=== PATIENT | female | born 1945 | race Hispanic/Latino ===

== ENCOUNTER 2017-03-07 10:08 | Observation (INO) | payer MEDICARE, MEDICAID ==
[~2017-03-07] VITALS: Ht 160 cm; Wt 99.0 kg
[2017-03-07 10:17] VITALS: BP 186/111; PULSE 86; RESP 16; O2SAT 96
--- NOTE | 2017-03-07 10:22 | ED.REPORT ---
HPI-Neurologic Deficit Date of Service Mar 07, 2017 ED Provider: Dr. Kevin White The patient is a 71 year old female who presents to the ED from due to confusion and altered mental status onset 0800 this morning. Per the pt's daughter, this morning she was not responding to questions appropriately at home , repeating the same phrases, and complained of nausea. Reports confusion. Her daughter denies difficulty walking, facial droop, one sided weakness, and slurred words. Pt was normal yesterday evening. She is on blood pressure medication. Blood sugar is 105. Nursing Notes Stated Complaint: CONFUSION AND VOMITING Chief Complaint: Neuro Symptoms/ Deficits Nursing Notes Reviewed: Yes Allergies: Coded Allergies: No Known Allergies (Unverified , 03/07/17) General Time Seen by Provider: 10:12 Chief Complaint Other (confusion) Hx Obtained From: Patient Arrived By: Walk-in Sudden in Onset?: Yes Onset Occurred: 1 - 4 hours ago Symptom Duration: Since onset Associated with: Reports: Nausea Recent Healthcare: Recent doctor visit Similar Sx Previous: Yes Risk Factors NIH Stroke Scale Level of Consciousness: Alert and responsive (0) Ask Month & Age: 0 questions right (2) Open/Close Eyes/Hand Preschool Principal: Performs both tasks (0) Horizontal EO Movements: None (0) Visual Vazquez: No visual loss (0) Facial Palsy: Normal symmetry (0) Right Arm Motor Drift (10s): No drift 10 sec (0) Left Arm Motor Drift (10s): No drift 10 sec (0) Right Leg Motor Drift (5s): No drift 5 sec (0) Left Leg Motor Drift (5s): No drift 5 sec (0) Limb Ataxia FNF/Heel-Holliday: No ataxia (0) Sensation (Arms/Legs/Face): Pinprick less sharp (1) Language Aphasia: No aphasia, normal (0) Dysarthria: No dysarthria, normal (0) Extinction/Inattention: No exctinct/inattent (0) NIHSS Score: 3 Time NIHSS Performed: 10:32 Date NIHSS Performed: Mar 07, 2017 Past Medical History Past Medical History HTN Smoking History Unknown if Ever Smoker Social History Other Social History: Good social support, Local resident Ambulatory Status Independent Review of Systems GI: Reports: Nausea, Denies: Vomiting Neurologic: Reports: Confusion, Headache, Denies: Dizziness, Focal weakness, Numbness, Problem walking, Slurred speech , Syncope, Vision change, Weakness Complete sys rev & neg: except as marked. Physical Exam Initial Vital Signs Vital Signs (First) Date Time Temp Pulse Resp B/P Pulse Ox O2 Delivery O2 Flow Rate FiO2 03/07/17 10:17 36.8 86 16 186/111 96 Room Air Initial VS: Reviewed General/Constitutional: Awake, Alert, Cooperative Head / Eyes: Atraumatic, Normocephalic Respiratory / Chest: Atraumatic, Breath sounds NL, Breath sounds = bilat Cardiovascular: Heart rate NL, Regular rhythm, Heart sounds NL Neurologic: No motor deficits Mental Status: Positive: Confused Abdomen: Atraumatic, Soft, Non-tender Upper Extremity / MS: Atraumatic, Inspection NL, Full range of motion, No deformity Lower Extremity / Pelvis / MS: Atraumatic, Inspection NL, Full range of motion , No deformity Skin: Atraumatic, Color NL, No rash Wrist / Hand: Atraumatic, Inspection NL, Full range of motion, No deformity Ankle / Foot: Atraumatic, Inspection NL, Full range of motion, No deformity Interpretation & Diagnostics Lab Results Interpretation Result Diagram: 03/07/17 1040 03/07/17 1040 Test 03/07/17 10:40 03/07/17 12:07 White Blood Count 8.4th/mm3 (3.8-10.1) Red Blood Count 4.73mil/mm3 (3.90-5.20) Hemoglobin 14.8g/dL (12.0-15.6) Hematocrit 44.5% (35.0-46.0) Mean Corpuscular Volume 94.1fL (81-100) Mean Corpuscular Hemoglobin 31.3pg (27.0-35.0) Mean Corpuscular Hemoglobin Concent 33.3% (32.0-37.0) Red Cell Distribution Width 11.9% (12.3-15.4) Platelet Count 224bil/L (150-400) Neutrophils (%) (Auto) 70.7% (40-74) Lymphocytes (%) (Auto) 23.1% (14-46) Monocytes (%) (Auto) 5.3% (4-12) Eosinophils (%) (Auto) 0.4% (0-5) Basophils (%) (Auto) 0.1% (0-3) Prothrombin Time 10.0sec (8.1-12.5) Prothromb Time International Ratio 0.94ratio Activated Partial Thromboplast Time 28.8sec (22.8-33.0) Hold Urine Received (Received) Sodium Level 141mEq/L (134-144) Potassium Level 3.6mEq/L (3.5-5.2) Chloride Level 103mEq/L (97-108) Carbon Dioxide Level 21mmol/L (18-29) Blood Urea Nitrogen 14mg/dL (8-27) Creatinine 0.55mg/dL (0.57-1.00) Estimat Glomerular Filtration Rate 157mL/min (>59) Glucose Level 114mg/dL (60-99) Calcium Level 9.4mg/dL (8.5-10.1) Total Bilirubin 0.4mg/dL (0.0-1.2) Aspartate Amino Transf (AST/SGOT) 13U/L (0-50) Alanine Aminotransferase (ALT/SGPT) 14U/L (0-32) Alkaline Phosphatase 114U/L (25-165) Troponin T 0.010ug/L (0.0-0.011) Total Protein 8.3g/dL (6.4-8.4) Albumin 4.3g/dL (3.4-5.0) Urine Color Straw (YELLOW) Urine Appearance Clear (CLEAR,HAZY) Urine pH 7.0 (5.0-8.0) Urine Specific [place] 1.010 (1.003-1.035) Urine Protein Negativemg/dL (NEG,TRACE) Urine Glucose (UA) Negativemg/dL (NEGATIVE) Urine Ketones Negativemg/dL (NEGATIVE) Urine Occult Blood Trace (NEGATIVE) Urine Nitrite Negative (NEGATIVE) Urine Bilirubin Negative (NEGATIVE) Urine Urobilinogen Normalmg/dL (NORMAL) Urine Leukocyte Esterase Negative (NEGATIVE) Urine RBC 0-2/hpf (0-2) Urine WBC 0-5/hpf (0-5) Urine Epithelial Cells Occasional/hpf (NONE-MOD) Urine Crystals None seen (NONE SEEN) Urine Bacteria None/hpf (NONE-FEW) Urine Hyaline Casts None/lpf (NONE) Urine Granular Casts None seen (NONE SEEN) Urine Waxy Casts None seen (NONE SEEN) Urine Red Blood Cell Casts None seen (NONE SEEN) Urine White Blood Cell Casts None seen (NONE SEEN) Urine Mucus None seen (None Seen) Urine Trichomonas Present (NONE SEEN) Urine Yeast None (NONE SEEN) Urinalysis Comment None Urine Culture Reflexed Not indicated ECG Interpretation ECG Interpretation: no acute ST changes Time: 22:46 Interpreted by: ED physician Normal ECG Interpretation: Normal sinus rhythm (rate 75) CT Head Interpretation IMPRESSION: 1. No acute intracranial abnormalities. Dictated by: Lawrence Junior M.D. on 03/07/2017 at 11:21 Approved by: Lawrence Junior M.D. on 03/07/2017 at 11:22 Study: Head CT no contrast Interpretation / Wet Read by: Interpret - Radiologist Re-Eval/Medical Decision Med Decision/Clinical Course Concern for CVA versus TIA versus other cause of altered mental status. TPA was not given due to onset greater than 3 hours as well as low NIH stroke scale. Re-Evaluation/Progress #1: Time of Eval: 10:35 Re-Evaluation/Progress Note: Plan for CT head. NIH stroke scale performed. Re-Evaluation/Progress #2: Time of Eval: 11:32 Re-Evaluation/Progress Note: Pt rechecked. She is still slightly confused. There is no evidence of a large stroke on her catscan. Plan for aspirin and to admit pt for observation. Pt and family understand and agree with plan. All questions addressed. Consultation : Referral / Consult Name: Carlos Decker DO Consulted With: Hospitalist Call Returned at: 13:08 Twister Frame Tender: Agrees with eval, Agrees with plan, Accepts admit Note: Case discussed. Dr. Decker accepts admit. Counseled Regarding: Diagnosis, Lab results, Need for admission Discharge & Departure Impression: Primary Impression: Confusion Additional Impression: CVA (cerebral vascular accident) CVA mechanism: unspecified Qualified Code: I63.9 - Cerebral infarction, unspecified Disposition: ADMITTED TO HOSPITAL Discharge Condition All VS Reviewed: Yes Condition: Stable Referrals: Glendy Cintron MD (PCP) Scribe Attestation Portion of this note were transcribed by Cheyenne Nunez. I, Dr. White, personally performed the history, physical exam, and medical decision-making: I reviewed and confirmed the accuracy for the information in the transcribed note. Signed by: tabitha Elaine, 03/07/17 1300 copies to: Glendy Cintron MD, Timothy S DO Mar 07, 2017 10:22 Cheyenne Nunez Mar 07, 2017 10:29
[2017-03-07] MEDS ORDERED: 0.9% Sodium Chloride 1,000 ML IV ONE (10:36)
[2017-03-07] MEDS ORDERED: Ondansetron 2 mg/mL 2 mL Inj IVPUSH PRN ×3 (10:40→16:35)
[2017-03-07 10:45] VITALS: BP 175/83; PULSE 76; RESP 18; O2SAT 94
[2017-03-07 10:55] LABS: BASOPHILS % (AUTO) 0.1 % (0-3); EOSINOPHILS % (AUTO) 0.4 % (0-5); MONOCYTES % (AUTO) 5.3 % (4-12); Mean Corpuscular Hemoglobin 31.3 pg (27.0-35.0); Mean Corpuscular Volume 94.1 fL (81-100); NEUTROPHILS % (AUTO) 70.7 % (40-74); Platelet Count 224 bil/L (150-400)
[2017-03-07 11:11] LABS: INR 0.94 ratio
[2017-03-07 11:17] LABS: TROPONIN T 0.01 ug/L (0.0-0.011)
--- NOTE | 2017-03-07 11:24 | DRSVH ---
PROCEDURE: CT BRAIN WITHOUT CONTRAST ([id number]) INDICATIONS: Stroke TECHNIQUE: Noncontrast 4.5 mm thick angled axial sections acquired from the foramen magnum to the vertex, with c oronal reformats. COMPARISON: None. FINDINGS: Image quality: Excellent. CSF spaces: Basal cisterns are patent. No extra-axial fluid collections. The ventricles are symmet thomas in size and shape. Brain: No intracranial bleeds or masses. There is mild cerebral volume loss for age, with resultant ventricular and sulcal prominence. There are mild periventricular and deep white matter chronic sma ll vessel ischemic changes. There is intracranial internal carotid artery atherosclerosis. Skull and face: Calvarium and visualized facial bones appear intact, without suspicious lesions. Sinuses: Visualized sinuses and mastoids are clear. IMPRESSION: 1. No acute intracranial abnormalities. Dictated by: Lawrence Junior M.D. on 03/07/2017 at 11:21 Approved by: Lawrence Junior M.D. on 03/07/2017 at 11:22
[2017-03-07 12:30] VITALS: BP 166/76; PULSE 71; RESP 14; O2SAT 95
[2017-03-07 12:42] LABS: APPEARANCE,URINE CLEAR (CLEAR,HAZY); COLOR,URINE STRAW (YELLOW); OCCULT BLOOD,URINE TRACE (NEGATIVE); UROBILINOGEN,URINE NORMAL (NORMAL)
[2017-03-07] MEDS ORDERED: Alum-Mag Hydrox-Simeth 30 mL Suspension PO PRN ×2 (13:10→16:35)
[2017-03-07 13:45] VITALS: BP 173/100; PULSE 82; RESP 16; O2SAT 96
--- NOTE | 2017-03-07 13:50 | PCM.HPMED ---
Subjective Date of Service Mar 07, 2017 Primary Provider: Admitting Physician: Carlos Decker DO Primary Care Physician: Glendy Cintron MD Attending Physician: Carlos Decker DO Chief Complaint: Confusion noted by family History of Present Illness: Patient is a 71-year-old female with past medical history significant for at least hypertension and hypothyroidism, recently moved from [place], presenting today to emergency department due to concern from family members when earlier this morning she demonstrated an increased level of confusion, and was not acting herself. It was her 2 daughters who brought her to the emergency department, they noted the patient was asking the same question multiple times, acting much more confused than her baseline, additionally complaining of nausea which prompted concern. I did not any more classic symptoms of stroke, stated they never observed any facial asymmetry, patient never had difficulty walking or ambulating, and also never demonstrated slurred speech. During emergency room evaluation however she was noted to have sensory deficits on the upper extremity which prompted additional concern for stroke. My evaluation confirmed history mentioned above, for which I needs to use an online delivery helper service due to patient being [place]-speaking. Only other pertinent history would be that of left ankle pain which has been causing her discomfort for past many months. She has already seen orthopedic surgeon, conservative treatment such as home exercises have not yet been effective. She mentions a possible remote history of diabetes diagnosed back when she was in [place] which she is not certain of this. She had her cholesterol levels measured in her primary care doctor's office earlier this week but is not sure of results. Real-time evaluation she is complaining of no symptoms. She does not recall the events of earlier this morning, and was surprised when she awoke in the emergency department. Additionally denies any chest pains or shortness of breath currently or in the recent past. Has any blurred vision headache or dizziness. Review of Systems: A 10 point review of systems is conducted and entirely negative excepting pertinent positives and negatives included above in history of present illness Allergies Coded Allergies: No Known Allergies (Unverified , 03/07/17) Home Medications Atenolol Amlodipine Levothyroxine Losartan Dosing as per medical reconciliation. PMH HTN Hypothyroidism Surgical History No surgical history noted Family History Patient denies any significant family history. She was asked specifically of history of stroke or cardiovascular disease in parents or siblings both of which she denies. Social History Hx Alcohol Use: No Hx Substance Use: No Hx Tobacco Use: No Exam Vital Signs Vital Sign - Last Date Time Temp Pulse Resp B/P Pulse Ox O2 Delivery O2 Flow Rate FiO2 03/07/17 13:45 37.1 82 16 173/100 96 Room Air General: Alert, Oriented X3, Cooperative, No Acute Distress Eyes: PERRLA, EOMI Mouth: Mucous Membr Moist/[place] Chest & Lungs: Clear to auscultation & percussion Cardiovascular: Regular Rate/Rhythm Abdomen: Non-tender, Non-distended Extremities: No cyanosis/clubbing/edma bilat Neurological: Grossly Neurologically Intact, Cranial Nerves 2-12 Intact, Normal Speech, Strength Normal 4/4 ext, Sensation Intact, Cerebellar Function nl Heel-Holliday Lab and Diagnostics Result Diagram: 03/07/17 1040 03/07/17 1040 Assessment & Plan 71-year-old female presented to the emergency department with altered mentation and confusion, additionally noted to have transient sensory deficits, placed on OBSERVATION due to concern for TIA or stroke: #. TIA/stroke observation #Acute mental status change/confusion. - Patient will be placed on continuous telemetry monitoring - Continue neurovascular checks as per protocol - MRA per stroke protocol as currently ordered and pending, additional obtain carotid ultrasounds and echocardiogram - Additional studies to be ordered will be patient's cholesterol, and hemoglobin A1c to screen for diabetes - Permissive hypertension first 24 hours, plan to attempt more tight control thereafter - PT, OT< Speech consulted - Continue ASA 325mg and Atorvastatin at this time. #Hypertension - Certainly a risk factor for stroke - We will restart home medications, as noted above will allow permissive hypertension at this time - NH medications prescribed for excessive elevation of blood pressures over 180 #Hypothyroidism - Continue levothyroxine - Will obtain TSH level #Ankle pain - Physical therapy consulted for above TIA stroke, will consider ankle pain as well. Pain Evaluation: Adequate Pain Control Resuscitation Status: CPR: Attempt Resuscitation Time spent 55 minutes Carlos Decker DO Mar 07, 2017 13:50
--- NOTE | 2017-03-07 13:58 | NUR ---
Admit: Patient arrived to [facility] @ approx 1345 via stretcher. Ambulated from stretcher to bed. Stand up weight obtained. Family at bedside. Denies pain, SOB, dizzy, lightheadedness and nausea. Alert & oriented. Oriented to room and call light system. Bed in low and locked position, bed rails up x 2, non-skid socks on for safety, call-light within reach. Stroke booklet provided. Telemetry #44 on, SR 90s per telephone directory deliverer.
[2017-03-07 14:08] VITALS: PULSE 96
[2017-03-07] MEDS ORDERED: LOSA50TA3 PO (14:30)
[2017-03-07] MEDS ORDERED: AMLO5TAB2 PO (14:30)
[2017-03-07] MEDS ORDERED: ATEN100T PO (14:30)
[2017-03-07] MEDS ORDERED: LEVO137T2 PO (14:36)
[2017-03-07] MEDS ORDERED: Polyethylene Glycol (PEG) 17 Gm Powder PO PRN (16:35)
[2017-03-07] MEDS ORDERED: Labetalol 5 mg/mL 4 mL Inj IVPUSH PRN (16:35)
--- NOTE | 2017-03-07 17:27 | NUR ---
MAYA explained to pt's daughter who interpreted for pt. All questions answered. MAYA signed, copy given.
[2017-03-07 20:06] VITALS: BP 149/81; PULSE 58; RESP 16; O2SAT 97
[2017-03-08] VITALS (8 sets, daily range): BP systolic 118–155; BP diastolic 70–83; PULSE 48–62; RESP 16–18; O2SAT 83–98
--- NOTE | 2017-03-08 04:54 | NUR ---
Neuro VS Pt has been alert and oriented x 4. No facial droop or slurring of speech noted, PERRLA. Bilateral equal color card maker. Pt is a Lao speaking, family has been helping with translations. Denies chest pain, sob, n/v or abd discomfort. Explained the CVA workup plan to pt's family and relatives. Pt verbalizes understanding. Will continue to monitor.
--- NOTE | 2017-03-08 10:21 | NUR ---
Evaluation completed/up ad mabel Please go to "Notes" then click on "Assessments and Notes" (bottom left corner of screen). Then select appropriate discipline tab on top of screen. no further PT indicated; OK to be up ad mabel
[2017-03-08] MEDS ORDERED: LORazepam 1 mg Tablet PO ONE (12:50)
--- NOTE | 2017-03-08 13:25 | NUR ---
MRI Concerns: Patient family states she get "really nervous" when she had her last MRI. MD notified and received order for Ativan one time for procedure. Ativan administered. Side effects explained. Asked patient to call for assistance to BR, call light within reach, family at bedside. Agreed.
--- NOTE | 2017-03-08 13:43 | NUR ---
Social Work: Initial Assessment / Multidisciplinary Rounds / Readiness for d/c Data: Pt is a 71 y/o female admitted for confusion, R/O CVA. Pt's PCP is Dr Cintron, pt's insurance is Medicare with [facility] supp. EMR reviewed. Pt discussed in rounds, MD states pt likely ready for d/c either today or tomorrow. MD PSYCHIATRY met with pt at bedside with family, role explained. Pt declined deaf interpreter, prefers grandson to interpret. Pt states she lives in [place] with her daughter in a single story home where she does not use DME, does not drive, has no hx of HH or SNF, no LTC or VA benefits, and is not a caregiver. Pt plans to d/c home via POV with a family member when medically stable. Assessment: Pt who is independent at baseline, currently capable of self care. Plan: Pt will d/c home via POV when medically stable, likely today or tomorrow per MD. No d/c planning needs identified at this time. MD PSYCHIATRY will continue to follow if needs arise. SHAHRIAR Soares Addendum: 03/08/17 at 1346 by OTILIA LLANES Amended: Links added.
--- NOTE | 2017-03-08 14:17 | NUR ---
Off Unit: Patent transported to MRI via bed accompanied by MRI staff. inspector technician notified. Ativan PO administered prior to transport for anxiety relief.
--- NOTE | 2017-03-08 17:50 | DRSVH ---
PROCEDURE: MRI STROKE PROTOCOL ([id number]) Pre- and post-contrast brain MRI, non-contrast brain MR angiogram, pre- and postcontrast neck MR albert ogram INDICATIONS: R/O CVA TECHNIQUE: Brain: Noncontrast axial T1 spin echo, axial T2 fast spin echo, sagittal and axial FLAIR, coronal T2 fast spin echo, axial gradient echo, axial diffusion and ADC through the brain. After the administr ation of contrast, axial 3D VIBE of the cranial vasculature and brain. Brain MRA: Non-contrast 3-D time of flight MR angiogram, with multiple korfzif-abkrtkclw-zwqzkabwks (MIP) reformats performed. Neck MRA: Axial and sagittal TruFISP through the neck. Coronal dynamic MR angiogram during administ ration of contrast in the arterial and venous phases, with 3-dimenstional orqgkdf-ijyvntsjc-bqmpvpabe n (MIP) reformats constructed from subtraction images. COMPARISON: [facility], CT, CT BRAIN WO CON, 03/07/2017, 11:01. FINDINGS: Image quality: Diagnostic. No motion artifact on of the [place] of [place] exam is noted. BRAIN: CSF spaces: Ventricles are normal in size and shape. Basal cisterns are patent. No extra-axial flu id collections. Brain: No intracranial bleeds or mass effects. Hyde-white matter interface is normal. Diffusion we ighted images show no acute ischemic insults. Small foci of increased flair signal is identified sca ttered throughout the deep white matter of the supratentorial brain, best appreciated on the sagittal flair images compared to the axial FLAIR images. Brainstem appears normal. Normal intravascular henry w voids are present. No abnormal intracranial enhancement. Skull and face: Calvarial marrow signal is normal. Orbits appear normal. Sinuses: Sinuses and mastoids are clear. BRAIN MR ANGIOGRAM: Anterior circulation: Intracranial internal carotid arteries are normal in size and enhancement. Th e flow within the paired anterior cerebral arteries is normal and symmetric. The flow within the mid dle cerebral arteries is normal and symmetric. And anterior to indicating artery is not definitely s een, which may be obscure by motion. No stenoses, occlusions, or aneurysms. Posterior circulation: The visualized portions of the vertebral arteries demonstrate normal caliber, and join to form a normal appearing basilar artery. The left vertebral artery is noted to be domina nt. The flow within the posterior cerebral arteries is normal and symmetric. No stenoses, occlusion s, or aneurysms. A posterior to indicating artery on the left is incidentally noted. NECK MR ANGIOGRAM: Carotids: Great vessels demonstrate a conventional anatomy as they arise from the aortic arch. The origins of the common carotid arteries appear patent. The calibers and courses of both common caroti d arteries are normal. There may be mild atherosclerotic irregularity involving the bilateral caroti d bulbs (right slightly greater than left). Extensive tortuosity of the bilateral internal carotid a rteries is noted. The internal carotid arteries demonstrate normal course and caliber. Posterior circulation: The origins of the vertebral arteries appear patent. More superior portions of both vertebral arteries demonstrate normal course and caliber, and join to form a normal appearing basilar artery. Miscellaneous: Subclavian arteries appear patent. Pre-contrast images through the neck show no soft tissue abnormalities. IMPRESSION: BRAIN MRI: 1. No acute intracranial hemorrhage or ischemia. 2. Probable minimal chronic small vessel ischemic changes. 2. No parenchymal masses or abnormal parenchymal enhancement. BRAIN MR ANGIOGRAM: -Unremarkable MR angiogram of the brain. No occlusion, aneurysm, dissection or high-grade narrowing. NECK MR ANGIOGRAM: 1. Possible mild atherosclerosis involving the bilateral carotid bulbs without focal stenosis. 2. No high grade stenosis, aneurysm, dissection, or occlusion of the vertebral or carotid arteries. The estimate of stenosis included in the report of the imaging study was calculated using the NASCET method Dictated by: Ish Farris M.D. on 03/08/2017 at 16:38 Approved by: Ish Farris M.D. on 03/08/2017 at 16:48
--- NOTE | 2017-03-08 19:03 | PCM.PNMED ---
Subjective Date of Service Mar 08, 2017 Subjective Pt stable overnight. NO complaints today. NO recurrence of confusion or numbness. Ankle still hurts but is tolerable. NO over acute complaints. Exam Vital Signs Vital Sign - Last Date Time Temp Pulse Resp B/P Pulse Ox O2 Delivery O2 Flow Rate FiO2 03/08/17 16:46 36.4 53 18 137/83 94 Room Air Intake and Output 03/07/17 03/07/17 03/08/17 Cumulative From/Thru 15:00 23:00 07:00 03/07/17 10:17 - 03/08/17 05:33 Intake Total 1000 ml 400 ml 300 ml 1700 ml Output Total 500 ml 500 ml Balance 1000 ml 400 ml -200 ml 1200 ml Intake Oral 400 ml 400 ml IV Total 1000 ml 1000 ml TPN/PPN 300 ml 300 ml Output Urine Total 500 ml 500 ml # Voids 2 3 5 Exam General: Alert, Oriented X3, Cooperative, No Acute Distress Chest & Lungs: Clear to auscultation & percussion Cardiovascular: Regular Rate/Rhythm Extremities: No cyanosis/clubbing/edma bilat Neurological: Grossly Neurologically Intact, Cranial Nerves 2-12 Intact, Normal Speech, IVs and Medications Medications Reviewed: Medications were reviewed in detail Lab and Diagnostics Result Diagram: 03/07/17 1040 03/07/17 1040 Assessment & Plan 71-year-old female presented to the emergency department with altered mentation and confusion, additionally noted to have transient sensory deficits, placed on OBSERVATION due to concern for TIA or stroke: #. TIA/stroke observation #Acute mental status change/confusion. - Patient will be placed on continuous telemetry monitoring, thus far not abnormalities - Continue neurovascular checks as per protocol, nonfocal exams, now DC'd - MRA per stroke protocol negative for evidence of stroke or other acute pathology - Additional studies to be ordered will be patient's cholesterol, and hemoglobin A1c to screen for diabetes - Permissive hypertension first 24 hours,BP now normalized - PT, OT< Speech consulted - Continue ASA 325mg and Atorvastatin at this time. - Echo remains pending #Hypertension - Home medications restarted. - ND medications prescribed for excessive elevation of blood pressures over 180 #Hypothyroidism - Continue levothyroxine - Will obtain TSH level #Ankle pain - Physical therapy consulted for above TIA stroke, will consider ankle pain as well. Dispo: Likely DC home tomorrow with negative echo Pain Evaluation: Adequate Pain Control VTE Mechanical Devices: Intermittant Pneumatic CD Resuscitation Status: CPR: Attempt Resuscitation Time spent 35 minutes Carlos Decker DO Mar 08, 2017 19:03
[2017-03-09 00:45] VITALS: BP 120/69; PULSE 46; RESP 18; O2SAT 94
[2017-03-09 05:00] VITALS: BP 123/73; PULSE 54; RESP 18; O2SAT 93
--- NOTE | 2017-03-09 05:15 | NUR ---
NOC/NVS Pt has been alert and oriented. Uzbek speaking but family is helping with translation. No slurring of speech, facial droop noted. Symmetrical smile observed. Bilateral equal community cultural development officer and lower extremity appropriate for age. HS meds administered as scheduled. VSS and has been afebrile throughout the night.
--- NOTE | 2017-03-09 08:22 | NUR ---
screened pt. No OT needs. Luis Manuel Still, OTR/L
[2017-03-09 10:54] VITALS: BP 141/79; PULSE 59; RESP 18; O2SAT 93
[2017-03-09] MEDS ORDERED: AMLO5TAB2 PO (12:01)
[2017-03-09] MEDS ORDERED: ATEN100T PO (12:01)
[2017-03-09] MEDS ORDERED: ASPI81TA3 PO (12:01)
[2017-03-09] MEDS ORDERED: LIP40 PO (12:01)
--- NOTE | 2017-03-09 12:14 | PCM.DIMED ---
Discharge Instructions Date of Service Mar 09, 2017 Dates of Hospitalization Mar 07, 2017 at 12:23 Discharge Diagnosis Discharge Diagnosis acute encephalopathy likely due to TIA or hypertensive urgency Medication Instructions Additional med instructions Your NEW blood pressure regimen Atenolol 50mg -> 100mg daily Amlodipine 5mg ->10mg daily Losartan 50mg twice a day [id number] daily newly started for your cholesterol [id number] daily nnewly started to prevent stroke Diet Discharge Diet: Low fat, Low Sodium, Heart Healthy Activity Discharge Activity: No restrictions Call your provider Call your provider for: Other (confusion) Patient Instructions Patient Instructions You were hospitalized with confusion, very high blood pressure. Your condition was concerning for stroke. You underwent comprehensive workups in the hospital, didn't show any signs of stroke. It's possible that it was resulted from high blood pressure or you had mini stroke called "TIA" Please note that you have to maintain healthy lifestyle, vegetable rich diet, vigorous exercise and continue medications as above to prevent future stroke Please follow up with your primary doctor in 2week Please monitor your blood pressure, with blood pressure cuff as we discussed Follow-up Provider: Glendy Cintron MD Follow-up with PCP in: 2 weeks Linda Rose MD Mar 09, 2017 12:02
--- NOTE | 2017-03-09 12:54 | NUR ---
Social Work-multidisciplinary rounds/ discharge: Data:EMR Reviewed. Pt is on day 2 of hospitalization for confusion per H&P. Pt is medically stable for discharge. PT/OT/ST have cleared pt for home no needs. Pt resides at home with family. Pt's family to provide transport home. No discharge needs identified. All updated and agreeable to plan. Assessment:Pt who is independent at baseline. Plan:Pt to discharge home today via POV. PT/OT/ST have cleared pt for home no needs. No discharge needs identified. All updated and agreeable to plan. SHAHRIAR Lopez
--- NOTE | 2017-03-09 14:29 | DRSVH ---
[facility] [address] [place] [address] Echocardiogram Report Name: MIKY BAILEY DStudy Date: 02/15 Height: 63 in Hospital Exam Location: [facility] Weight: 218 lb Gender: Female BSA: 2.0 m2 : 1945 Age: 71 yrs BP: 123/73 mmHg Reason For Study: CVA Ordering Physician: [facility]PITAL[facility] Performed By: Maggie Walter Referring Physician: Dr Glendy Cintron Interpretation Summary The ejection fraction is estimated to be 65-70%. Injection of contrast documented no interatrial shunt. The right ventricular systolic pressure is estimated at 33 mmHg assuming a right atrial pressure of 3 mm Hg. There is no significant valvular heart disease. Procedure: A two-dimensional transthoracic echocardiogram with color flow and Doppler was performed. The study quality was technically adequate. There is no prior echocardiogram noted for this patient. The patient was in normal sinus rhythm during the exam. The heart rate ranged between 52-64 bpm during the study. Left Ventricle: The left ventricle is normal in size, wall thickness, and systolic function without any focal wall motion abnormalities. The ejection fraction is estimated to be 65-70%. Right Ventricle: The right ventricle is normal in size and function. Atria: Both atria are normal in size. There is no Doppler evidence for an interatrial shunt. Injection of contrast documented no interatrial shunt. Mitral Valve: The mitral valve is normal in structure and function. There is trace mitral regurgitation. Aortic Valve: The aortic valve is normal in structure and function. No aortic regurgitation is present. Tricuspid Valve: The tricuspid valve is normal in structure and function. There is a trace or physiologic amount of tricuspid regurgitation. The right ventricular systolic pressure is estimated at 33 mmHg assuming a right atrial pressure of 3 mm Hg. Pulmonic Valve: The pulmonic valve is not well seen, but is grossly normal. There is no pulmonic valvular regurgitation. Great Vessels: The aortic root is normal size. The ascending aorta could not be visualized. The aortic arch is normal in size. The IVC is of normal diameter and collapses greater than 50% with a sniff. This suggests a low right atrial pressure of 3 mm Hg. Pericardium/ Pleura There is no pericardial effusion. MMode/2D Measurements & Calculations LVIDd: 4.7 cm RA long axis LVOT diam: 2.0 cm LVIDs: 2.6 cm LA A2 area: 18.6 cm Ao root diam FS: 44.8 % LA A4 area: 20.3 cm RA area EPSS: 0.43 cm LA length (vol) Ao Arch Diam (Prox IVSd: 0.84 cm : 15.6 cm Trans): 3.0 cm LVPWd: 0.88 cm LA vol: 56.0 ml RA vol LA vol index : 39.2 ml RA : 19.6 mm2 IVC diam: 1.1 cm LV perez. diameter/BSA LV sys. diameter/BSA RVD1 (basal) RVD2 (mid): 2.4 cm (cm/m^2): 2.4 (cm/m^2): 1.3 TAPSE: 2.8 cm Doppler Measurements & Calculations Ao V2 max MV E max lloyd MV E/A: 0.61 TR max lloyd : 173.1 cm/sec : 77.3 cm/sec Med Peak E' Lloyd : 271.6 cm/sec Ao max PG MV A max lloyd TR max PG : 12.0 mmHg : 127.3 cm/sec E/E' med: 15.0 : 29.5 mmHg Ao mean PG MV P1/2t: 97.1 msec Lat Peak E' Lloyd PA V2 max : 104.0 cm/sec LVOT Max Lloyd E/E' lat: 14.1 PA mean PG : 119.4 cm/sec E/e' average PA Accel Time LISETH(I,D): 2.5 cm : 0.11 sec sev ratio MV dec time MV P1/2t max lloyd Ao V2 mean LV V1 max PG : 0.33 sec : 120.3 cm/sec MVA(P1/2t): 2.3 cm2 Ao V2 VTI: 43.8 cmLV V1 VTI LISETH(V,D): 2.1 cm2 : 35.5 cm PA V2 mean LISETH indexed to BSA : 69.2 cm/sec (cm^2/m^2): 1.2 Electronically signed by: Gregorio Venegas on Reading Physician:03/09/2017 02:28 PM
--- NOTE | 2017-03-09 14:30 | NUR ---
Discharge: Patient discharged to home @ approx 1430. IV d/c'd intact, telemetry removed, radiation monitor notified. Personal belongings sent home with patient. Reviewed new prescription, home medications, discharge instructions and follow up appointment with patient and family using translator interpreter. Allowed time for questions. Patient and family verbalized understanding. Escorted via wheelchair to main entrance accompanied by this RN and family. No apparent distress noted at time of discharge.
--- NOTE | 2017-03-09 22:22 | PCM.DC.MED ---
Discharge Summary Date of Service Mar 09, 2017 Dates of Hospitalization Date of Hospital Admission Mar 07, 2017 at 12:23 Date of Discharge: Mar 09, 2017 Providers: Admitting Physician: Carlos Decker DO Primary Care Physician: Glendy Cintron MD Attending Physician: Linda Gifford MD Diagnosis at Time of Discharge Diagnosis at Time of Discharge acute dx acute encephalopathy likely due to TIA or hypertensive urgency chronic dx #Hypertension #Hypothyroidism #Ankle pain Procedures Other Diagnostics PROCEDURE: CT BRAIN WITHOUT CONTRAST ([id number]) INDICATIONS: Stroke TECHNIQUE: Noncontrast 4.5 mm thick angled axial sections acquired from the foramen magnum to the vertex, with coronal reformats. COMPARISON: None. FINDINGS: Image quality: Excellent. CSF spaces: Basal cisterns are patent. No extra-axial fluid collections. The ventricles are symmetric in size and shape. Brain: No intracranial bleeds or masses. There is mild cerebral volume loss for age, with resultant ventricular and sulcal prominence. There are mild periventricular and deep white matter chronic small vessel ischemic changes. There is intracranial internal carotid artery atherosclerosis. Skull and face: Calvarium and visualized facial bones appear intact, without suspicious lesions. Sinuses: Visualized sinuses and mastoids are clear. IMPRESSION: 1. No acute intracranial abnormalities. Dictated by: Lawrence Junior M.D. on 03/07/2017 at 11:21 Approved by: Lawrence Junior M.D. on 03/07/2017 at 11:22 PROCEDURE: MRI STROKE PROTOCOL ([id number]) Pre- and post-contrast brain MRI, non-contrast brain MR angiogram, pre- and postcontrast neck MR angiogram INDICATIONS: R/O CVA TECHNIQUE: Brain: Noncontrast axial T1 spin echo, axial T2 fast spin echo, sagittal and axial FLAIR, coronal T2 fast spin echo, axial gradient echo, axial diffusion and ADC through the brain. After the administration of contrast, axial 3D VIBE of the cranial vasculature and brain. Brain MRA: Non-contrast 3-D time of flight MR angiogram, with multiple maximum- intensity-projection (MIP) reformats performed. Neck MRA: Axial and sagittal TruFISP through the neck. Coronal dynamic MR angiogram during administration of contrast in the arterial and venous phases, with 3-dimenstional kmtneyv-bhfnrtsvp-srypeiryzr (MIP) reformats constructed from subtraction images. COMPARISON: [facility], CT, CT BRAIN WO CON, 03/07/2017, 11:01. FINDINGS: Image quality: Diagnostic. No motion artifact on of the [place] of [place] exam is noted. BRAIN: CSF spaces: Ventricles are normal in size and shape. Basal cisterns are patent. No extra-axial fluid collections. Brain: No intracranial bleeds or mass effects. Hyde-white matter interface is normal. Diffusion weighted images show no acute ischemic insults. Small foci of increased flair signal is identified scattered throughout the deep white matter of the supratentorial brain, best appreciated on the sagittal flair images compared to the axial FLAIR images. Brainstem appears normal. Normal intravascular flow voids are present. No abnormal intracranial enhancement. Skull and face: Calvarial marrow signal is normal. Orbits appear normal. Sinuses: Sinuses and mastoids are clear. BRAIN MR ANGIOGRAM: Anterior circulation: Intracranial internal carotid arteries are normal in size and enhancement. The flow within the paired anterior cerebral arteries is normal and symmetric. The flow within the middle cerebral arteries is normal and symmetric. And anterior to indicating artery is not definitely seen, which may be obscure by motion. No stenoses, occlusions, or aneurysms. Posterior circulation: The visualized portions of the vertebral arteries demonstrate normal caliber, and join to form a normal appearing basilar artery. The left vertebral artery is noted to be dominant. The flow within the posterior cerebral arteries is normal and symmetric. No stenoses, occlusions, or aneurysms. A posterior to indicating artery on the left is incidentally noted. NECK MR ANGIOGRAM: Carotids: Great vessels demonstrate a conventional anatomy as they arise from the aortic arch. The origins of the common carotid arteries appear patent. The calibers and courses of both common carotid arteries are normal. There may be mild atherosclerotic irregularity involving the bilateral carotid bulbs ( right slightly greater than left). Extensive tortuosity of the bilateral internal carotid arteries is noted. The internal carotid arteries demonstrate normal course and caliber. Posterior circulation: The origins of the vertebral arteries appear patent. More superior portions of both vertebral arteries demonstrate normal course and caliber, and join to form a normal appearing basilar artery. Miscellaneous: Subclavian arteries appear patent. Pre-contrast images through the neck show no soft tissue abnormalities. IMPRESSION: BRAIN MRI: 1. No acute intracranial hemorrhage or ischemia. 2. Probable minimal chronic small vessel ischemic changes. 2. No parenchymal masses or abnormal parenchymal enhancement. BRAIN MR ANGIOGRAM: -Unremarkable MR angiogram of the brain. No occlusion, aneurysm, dissection or high-grade narrowing. NECK MR ANGIOGRAM: 1. Possible mild atherosclerosis involving the bilateral carotid bulbs without focal stenosis. 2. No high grade stenosis, aneurysm, dissection, or occlusion of the vertebral or carotid arteries. The estimate of stenosis included in the report of the imaging study was calculated using the NASCET method Dictated by: Ish Farris M.D. on 03/08/2017 at 16:38 Approved by: Ish Farris M.D. on 03/08/2017 at 16:48 Brief History HPI obtained by on 03/07 Patient is a 71-year-old female with past medical history significant for at least hypertension and hypothyroidism, recently moved from [place], presenting today to emergency department due to concern from family members when earlier this morning she demonstrated an increased level of confusion, and was not acting herself. It was her 2 daughters who brought her to the emergency department, they noted the patient was asking the same question multiple times, acting much more confused than her baseline, additionally complaining of nausea which prompted concern. I did not any more classic symptoms of stroke, stated they never observed any facial asymmetry, patient never had difficulty walking or ambulating, and also never demonstrated slurred speech. During emergency room evaluation however she was noted to have sensory deficits on the upper extremity which prompted additional concern for stroke. My evaluation confirmed history mentioned above, for which I needs to use an online ethnic origins teacher service due to patient being Syrian-speaking. Only other pertinent history would be that of left ankle pain which has been causing her discomfort for past many months. She has already seen orthopedic surgeon, conservative treatment such as home exercises have not yet been effective. She mentions a possible remote history of diabetes diagnosed back when she was in [place] which she is not certain of this. She had her cholesterol levels measured in her primary care doctor's office earlier this week but is not sure of results. Real-time evaluation she is complaining of no symptoms. She does not recall the events of earlier this morning, and was surprised when she awoke in the emergency department. Additionally denies any chest pains or shortness of breath currently or in the recent past. Has any blurred vision headache or dizziness. Hospital Course 71-year-old female presented to the emergency department with altered mentation and confusion, additionally noted to have transient sensory deficits, placed on OBSERVATION due to concern for TIA or stroke: Patient was admitted, had workups for stroke, MRA, CTh didn't show acute pathology. Patient didn't show neurologic deficit throughout hospitalization. Patient was started on aspirin, tolerated [id number] well. It's likely that patient had possible TIA or initial confusion resulted from hypertensive urgency. Patient was allowed hypertension for presumed stroke initially, then bp regimen was changed as pt was bradycardic to [id number]. Plan is to continue [id number], [id number], Given bradycardia, atenolol was decreased from 100mg to 50mg and amlodipine was increased from 5mg to 10mg daily. All the questions answered via ethnic origins teacher prior to d/c. patient left to home with her family. #. TIA/stroke observation #Acute mental status change/confusion. - Patient will be placed on continuous telemetry monitoring, thus far not abnormalities - Continue neurovascular checks as per protocol, nonfocal exams, now DC'd - MRA per stroke protocol negative for evidence of stroke or other acute pathology - Additional studies to be ordered will be patient's cholesterol, and hemoglobin A1c to screen for diabetes - Permissive hypertension first 24 hours,BP now normalized - PT, OT< Speech consulted - Continue ASA 325mg and Atorvastatin at this time. - Echo remains pending #Hypertension - Home medications restarted. - SC medications prescribed for excessive elevation of blood pressures over 180 #Hypothyroidism - Continue levothyroxine - Will obtain TSH level #Ankle pain - Physical therapy consulted for above TIA stroke, will consider ankle pain as well. Dispo: Likely DC home tomorrow with negative echo Exam Vital Signs (Last) Date Time Temp Pulse Resp B/P Pulse Ox O2 Delivery O2 Flow Rate FiO2 03/09/17 10:54 36.8 59 18 141/79 93 Room Air Exam pt was examined on the day of d/c Test 03/07/17 10:40 03/07/17 12:07 White Blood Count 8.4th/mm3 (3.8-10.1) Red Blood Count 4.73mil/mm3 (3.90-5.20) Hemoglobin 14.8g/dL (12.0-15.6) Hematocrit 44.5% (35.0-46.0) Mean Corpuscular Volume 94.1fL (81-100) Mean Corpuscular Hemoglobin 31.3pg (27.0-35.0) Mean Corpuscular Hemoglobin Concent 33.3% (32.0-37.0) Red Cell Distribution Width 11.9% (12.3-15.4) Platelet Count 224bil/L (150-400) Neutrophils (%) (Auto) 70.7% (40-74) Lymphocytes (%) (Auto) 23.1% (14-46) Monocytes (%) (Auto) 5.3% (4-12) Eosinophils (%) (Auto) 0.4% (0-5) Basophils (%) (Auto) 0.1% (0-3) Prothrombin Time 10.0sec (8.1-12.5) Prothromb Time International Ratio 0.94ratio Activated Partial Thromboplast Time 28.8sec (22.8-33.0) Hold Urine Received (Received) Sodium Level 141mEq/L (134-144) Potassium Level 3.6mEq/L (3.5-5.2) Chloride Level 103mEq/L (97-108) Carbon Dioxide Level 21mmol/L (18-29) Blood Urea Nitrogen 14mg/dL (8-27) Creatinine 0.55mg/dL (0.57-1.00) Estimat Glomerular Filtration Rate 157mL/min (>59) Glucose Level 114mg/dL (60-99) Hemoglobin A1c 5.7% (4.8-5.6) Calcium Level 9.4mg/dL (8.5-10.1) Total Bilirubin 0.4mg/dL (0.0-1.2) Aspartate Amino Transf (AST/SGOT) 13U/L (0-50) Alanine Aminotransferase (ALT/SGPT) 14U/L (0-32) Alkaline Phosphatase 114U/L (25-165) Troponin T 0.010ug/L (0.0-0.011) Total Protein 8.3g/dL (6.4-8.4) Albumin 4.3g/dL (3.4-5.0) Triglycerides Level 170mg/dL (0-149) Cholesterol Level 166mg/dL (100-199) LDL Cholesterol, Calculated 91.000mg/dL (0-99) VLDL Cholesterol 34.000mg/dL HDL Cholesterol 41mg/dL (>39) Cholesterol/HDL Ratio 4.05 (0.0-4.4) Urine Color Straw (YELLOW) Urine Appearance Clear (CLEAR,HAZY) Urine pH 7.0 (5.0-8.0) Urine Specific [place] 1.010 (1.003-1.035) Urine Protein Negativemg/dL (NEG,TRACE) Urine Glucose (UA) Negativemg/dL (NEGATIVE) Urine Ketones Negativemg/dL (NEGATIVE) Urine Occult Blood Trace (NEGATIVE) Urine Nitrite Negative (NEGATIVE) Urine Bilirubin Negative (NEGATIVE) Urine Urobilinogen Normalmg/dL (NORMAL) Urine Leukocyte Esterase Negative (NEGATIVE) Urine RBC 0-2/hpf (0-2) Urine WBC 0-5/hpf (0-5) Urine Epithelial Cells Occasional/hpf (NONE-MOD) Urine Crystals None seen (NONE SEEN) Urine Bacteria None/hpf (NONE-FEW) Urine Hyaline Casts None/lpf (NONE) Urine Granular Casts None seen (NONE SEEN) Urine Waxy Casts None seen (NONE SEEN) Urine Red Blood Cell Casts None seen (NONE SEEN) Urine White Blood Cell Casts None seen (NONE SEEN) Urine Mucus None seen (None Seen) Urine Trichomonas Present (NONE SEEN) Urine Yeast None (NONE SEEN) Urinalysis Comment None Urine Culture Reflexed Not indicated Discharge Medications Discharge Medications Amlodipine (Amlodipine) 5 Mg Tablet 10 MG PO DAILY Prescribed by: LINDA GIFFORD MD Aspirin Chew (Aspirin Chew) 81 Mg Chew 81 MG PO DAILY Prescribed by: LINDA GIFFORD MD Atenolol (Atenolol) 100 Mg Tablet 50 MG PO DAILY Prescribed by: LINDA GIFFORD MD Atorvastatin (Lipitor) 40 Mg Tablet 40 MG PO DAILY Prescribed by: LINDA GIFFORD MD Levothyroxine (Levothyroxine) 137 Mcg Tablet 137 MCG PO DAILY (Reported) Losartan Potassium (Cozaar) 50 Mg Tablet 50 MG PO BID (Reported) Additional med instructions Your NEW blood pressure regimen Atenolol 50mg -> 100mg daily Amlodipine 5mg ->10mg daily Losartan 50mg twice a day [id number] daily newly started for your cholesterol [id number] daily nnewly started to prevent stroke Followup Plan Disposition: home Discharge Diet: Low fat, Low Sodium, Heart Healthy Discharge Activity: No restrictions Patient Instructions You were hospitalized with confusion, very high blood pressure. Your condition was concerning for stroke. You underwent comprehensive workups in the hospital, didn't show any signs of stroke. It's possible that it was resulted from high blood pressure or you had mini stroke called "TIA" Please note that you have to maintain healthy lifestyle, vegetable rich diet, vigorous exercise and continue medications as above to prevent future stroke Please follow up with your primary doctor in 2week Please monitor your blood pressure, with blood pressure cuff as we discussed Follow-up Provider: Glendy Cintron MD Follow-up with PCP in: 2 weeks Time spent 65min Linda Gifford MD Mar 09, 2017 22:22
== END 2017-03-09 14:21 | disposition home or self-care (01) ==
LOC: SED 10:08 → MPC 12:23
PROVIDERS: ADMIT Family Medicine; ATTEND Internal Medicine
DX: G93.40 Encephalopathy, unspecified (principal); R41.0 Disorientation, unspecified; I10 Essential (primary) hypertension; E03.9 Hypothyroidism, unspecified; M25.572 Pain in left ankle and joints of left foot; Z79.899 Other long term (current) drug therapy; Z79.82 Long term (current) use of aspirin
CPT/HCPCS: 36415; 70450; 70549; 70553; 80053; 80061; 81000; 82948; 83036; 84484; 85025; 85610; 85730; 92610; 93005; 96361; 96374; 97161; 99285; A9585; C8929; G0378; G8978; G8979; G8980; G8996; G8997; J2405; J7030